=== PATIENT | male | born 1935 | race Caucasian/White ===

== ENCOUNTER → 2017-07-21 08:34 | Outpatient (CLI) | payer MEDICARE, OTHER, SELFPAY ==
[2017-07-21 10:40] LABS: AST(SGOT) 12 U/L (15-37); Alanine Aminotransfer ALT/SGPT 13 U/L (16-61); Albumin, Serum 3.7 g/dL (3.2-5.0); Alkaline Phosphatase 103 U/L (45-117); Bilirubin, Direct 0.14 mg/dL (0.00-0.30); Globulin 3.8 g/dL (2.2-4.2); Protein, Total 7.5 g/dL (6.4-8.2)
== END ==
PROVIDERS: Family Provider Internal Medicine; PCP Internal Medicine; Visit Provider Internal Medicine Pulmonary Disease
DX: Z79.899 Other long term (current) drug therapy (principal)
CPT/HCPCS: 36415; 80076

== ENCOUNTER 2018-06-07 13:39 | Emergency (ER) | payer MEDICARE, OTHER, SELFPAY ==
[2018-06-07 13:40] VITALS: BP 153/71; PULSE 93; RESP 20; TEMP 36.8; O2SAT 98; BMI 28.7
--- NOTE | 2018-06-07 13:51 | CT_ITS ---
STUDY: CT CHEST WITHOUT CONTRAST REASON FOR EXAM: Male, 82 years old. Worsening left chest pain RADIATION DOSAGE (If Supplied By Facility): CTDIvol = ( 24.11 ) mGy, DLP = ( 2145.25 ) mGycm TECHNIQUE: Transaxial imaging was performed without the administration of intravenous contrast material. Individualized dose optimization techniques were used for this CT. COMPARISON: Chest x-ray 05/26/2014. 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 There is diffuse peripheral reticular thickening. There are scattered pulmonary nodules, for example at the right apical subpleural region on series 2 image 20 measuring 1.7 x 1.9 cm, and the right lower lobe on image 71 measuring 1.1 x 0.7 cm, and the right middle lobe subpleural region on image 67 measuring 1.2 x 0.6 cm and the left lingula abutting the fissure on image 74 measuring 1 x 0.7 cm. No focal pulmonary consolidation. There is no demonstrated pleural abnormality. Normal heart and pericardium. There is marked coronary artery calcifications and/or stents. Status post CABG. There is mediastinal adenopathy measuring up to 2.4 cm short axis in the right paratracheal region. There is right hilar adenopathy. The main pulmonary artery is dilated to 4.6 cm. There is atherosclerotic tortuosity of the aortic arch and descending thoracic aorta. There is multilevel degenerative disc disease . There is ankylosing spondylitis. No lytic or blastic osseous lesion. There is a chronic, healed left lateral seventh rib fracture. Median sternotomy. There are scattered, ill-defined hepatic hypodense lesions consistent with diffuse metastases. There is a left hepatic lobe cyst. Small hiatal hernia. CT/Chest without Contrast IMPRESSION: 1. Scattered pulmonary nodules measuring up to 1.7 x 1.9 cm in the right lung apex, this is felt to represent primary lung cancer with celso metastases to the mediastinum and right hilar regions. There are diffuse hepatic metastases. 2. chronic interstitial lung disease consistent with UIP/IPF noted. There is no definite focal pulmonary consolidation. 3. Ankylosing spondylitis. No definite osseous metastasis. 4. Remaining chronic findings are described above. Electronically Signed: Alayna Brown, at 15:11 EDT Tel , Service support ,
--- NOTE | 2018-06-07 13:51 | CT_ITS ---
STUDY: CT ABDOMEN AND PELVIS WITHOUT CONTRAST REASON FOR EXAM: Male, 82 years old. FALLApril 2018, WORSENING LEFT SIDE CHEST/FLANK PAIN RADIATION DOSAGE (If Supplied By Facility): CTDIvol = ( 24.11 ) mGy, DLP = ( 2145.25 ) mGycm TECHNIQUE: Transaxial images were obtained from the dome of the diaphragm to the symphysis pubis without oral contrast, and without intravenous contrast. Sagittal and coronal images were reconstructed. Individualized dose optimization techniques were used for this CT. COMPARISON: None. FINDINGS: There are chronic interstitial fibrotic changes of the lung bases. Multiple bilateral lung nodules are noted the largest measures 1 cm are consistent metastatic lesions. The visualized portions of the heart are within normal limits. There is a cyst in the liver is located in the segment #2 measures 1.5 cm. Multiple decrease attenuation lesions are seen in the liver largest measures 4 cm suggesting metastatic lesions. There are surgical clips in the gallbladder fossa consistent with a prior cholecystectomy. Normal spleen. Normal pancreas. Normal bilateral adrenal glands. Normal right kidney. Normal left kidney. Normal visualized stomach. Normal small intestine. There are multiple colonic diverticula consistent with diverticulosis. The appendix is visualized and appears normal. There is diffuse atherosclerotic calcification of the abdominal aorta, without a demonstrated aneurysm. Normal inferior vena cava. Normal retroperitoneum. Multiple stones are seen in the dependent part of urinary bladder largest measures 5 mm. Normal abdominal wall. There are diffuse degenerative changes of the visualized lumbar spine. CT/Abdomen/Pelvis without Cont IMPRESSION: Multiple liver metastases the largest measures 4 cm Multiple bilateral lung nodules are noted the largest measures 1 cm are consistent metastatic lesions. Multiple stones are seen in the dependent part of urinary bladder largest measures 5 mm. Electronically Signed: Sammie Cifuentes, at 16:00 EDT Tel , Service support ,
--- NOTE | 2018-06-07 13:51 | RAD_ITS ---
STUDY: X-RAY - LEFT KNEE REASON FOR EXAM: Left knee pain, fall in April. TECHNIQUE: 3 view(s) of the knee. COMPARISON: None. FINDINGS: Normal visualized distal femur. Normal visualized proximal tibia and fibula. Normal proximal tibiofibular articulation. There is mild joint space narrowing of the medial femorotibial compartment. Normal lateral femorotibial compartment. Normal patellofemoral articulation. There is patellar enthesopathy. There are surgical clips and vascular calcification. RAD/Knee 3 Views IMPRESSION: Mild arthrosis of the medial femorotibial compartment. Patellar enthesopathy. Electronically Signed: Haris Del Angel MD at 15:01 EDT Tel , Service support ,
--- NOTE | 2018-06-07 13:55 | ED.DCSUM_ITS ---
- ER Visit Summary Date of Service: 06/07/18 Chief Complaint: Fall History of Present Illness: The patient is a 82 M who had a fall last month. He slipped on the ice. He has been having pain ever since. The pain is in his low back, left chest, left groin and left knee. The pain is worse with movement. He denies any head trauma or LOC. He has been taking Tylenol and had some leftover oxycodone which did help with his pain. He is now out of the oxycodone. Physical Examination: Vital signs are reviewed. HEENT exam reveals no trauma. He has no pain. Heart is regular rate and rhythm. Lungs are clear to auscultation bilaterally. He has left-sided chest tenderness to palpation. No deformities are felt. Abdomen is soft with pain on palpation of the left groin. No hernias are felt. He has lumbar spine tenderness diffusely. No ecchymosis. No CVA tenderness. His extremities are all unremarkable. He has full range of motion without any pain. GCS 15. Test Results: Left knee x-ray reveals chronic changes. CAT scan of the chest abdomen and pelvis reveals lung cancer with metastases in the liver. There is no traumatic injuries Emergency Department Course and Treatment: She was given oxycodone and felt better. I did inform him of these pulmonary and liver nodules. He has no history of this in the past. He would like to follow-up as an outpatient to get these checked out. I will give him Dr. Anthony to follow-up with. I will give him a short course of oxycodone for pain Treatment Plan: [] Disposition: Discharge Impression: Left chest contusion, left knee contusion, pulmonary and liver nodules, suspicious for cancer This note was generated with [employer] software. It may contain incorrect words, spelling, and punctuation that were not noted in review of the chart prior to signing ED Disposition - Plan for ED Patient: Referrals: Froy Acosta MD [Primary Care Provider] -
[2018-06-07] MEDS: oxyCODONE 5 MG Tablet PO (14:02)
--- NOTE | 2018-06-07 16:07 | ED.DEP ---
ED Disposition - Plan for ED Patient: Disposition: Home or Assisted Living Instructions: ED Mechanical Fall Prescriptions: Oxycodone [Oxyir] 5 mg PO Q6H PRN PRN 3 Days #10 tab PRN Reason: Pain Referrals: Kaila Anthony MD [STAFF PHYSICIAN] -
[2018-06-07 16:26] VITALS: BP 114/69; RESP 14
== END 2018-06-07 16:27 | disposition home or self-care (01) ==
PROVIDERS: Emergency Provider Emergency Medicine; Family Provider Internal Medicine; PCP Internal Medicine
DX: S20.212A Contusion of left front wall of thorax, initial encounter (principal); S80.02XA Contusion of left knee, initial encounter; R91.8 Other nonspecific abnormal finding of lung field; K76.89 Other specified diseases of liver; W00.0XXA Fall on same level due to ice and snow, initial encounter; Y93.89 Activity, other specified; Y92.89 Other specified places as the place of occurrence of the external cause; Y99.8 Other external cause status
CPT/HCPCS: 71250; 73562; 74176; 99283